=== PATIENT | female | born 1975 | race Caucasian/White ===

== ENCOUNTER → 2016-07-01 | Outpatient (CLI) | payer OTHER ==
[~2016-07-01] MED LIST: BCPILLS PO; CETI10TA84 PO; MELATAB2 PO; NAPR1TAB9 PO; TURM1CAP4 PO; ZOLOFT PO
== END | disposition home or self-care (01) ==
LOC: C.PAPS 09:16
PROVIDERS: ATTEND Obstetrics & Gynecology
DX: Z12.4 Encounter for screening for malignant neoplasm of cervix (principal)

== ENCOUNTER 2016-07-26 07:50 | Emergency (ER) | payer OTHER ==
[~2016-07-26] VITALS: Ht 172.7 cm; Wt 79.0 kg
[2016-07-26 07:52] VITALS: TEMP 36.8; Ht 172.7 cm; Wt 79.0 kg
[2016-07-26] MEDS ORDERED: BCPILLS PO (08:03)
[2016-07-26] MEDS ORDERED: NAPR1TAB9 PO (08:03)
[2016-07-26] MEDS ORDERED: TURM1CAP4 PO (08:03)
[2016-07-26] MEDS ORDERED: ZOLOFT PO (08:03)
[2016-07-26] MEDS ORDERED: MELATAB2 PO (08:03)
[2016-07-26] MEDS ORDERED: CETI10TA84 PO (08:03)
[2016-07-26 11:19] VITALS: BP 131/88; PULSE 96; O2SAT 100
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
== END 2016-07-26 11:20 | disposition home or self-care (01) ==
LOC: EDSEX 07:50 → EDBD 07:50 → C.EDA 07:52
DX: Z02.1 Encounter for pre-employment examination (principal); F41.9 Anxiety disorder, unspecified; F32.9 Major depressive disorder, single episode, unspecified

== ENCOUNTER → 2016-08-11 | Outpatient (CLI) | payer OTHER ==
[2016-08-11 12:45] LABS: BASO % 0.5 %; BASO ABS # 0.03 K/uL (0-0.2); COMPLETE YES; EOS % 2.4 %; HEMATOCRIT 39.7 % (37-47); IG% 0.2 %; LYMPH % 35.7 %; LYMPH ABS # 2.23 K/uL (1.2-3.4); MEAN CELL VOLUME 89.4 fL (80-100); MEAN CORPUSCULAR HEMOGLOBIN 30.4 pg (25-34); MONO % 8.2 %; PLATELET COUNT 228 K/uL (130-400); RED BLOOD COUNT 4.44 M/uL (4.2-5.4); WHITE BLOOD COUNT 6.24 K/uL (4.8-10.8)
[2016-08-11 13:10] LABS: BLOOD UREA NITROGEN 13 mg/dl (7-18); CREATININE 0.83 mg/dl (0.60-1.20); GLUCOSE 88 mg/dl (70-99)
[2016-08-11 13:11] LABS: ALT/SGPT 22 U/L (12-78); AST/SGOT 12 U/L (15-37); BUN/CREATININE RATIO 15.1 (10-20); CALCIUM 8.5 mg/dl (8.5-10.1); CARBON DIOXIDE 24 mmol/L (21-32); CHLORIDE 105 mmol/L (98-107); POTASSIUM 4.3 mmol/L (3.5-5.1); SODIUM 139 mmol/L (136-145)
[2016-08-11 13:21] LABS: ALB/GLOB RATIO 1.1 (0.9-2); ALKALINE PHOSPHATASE 47 U/L (45-117); CHOLESTEROL 209 mg/dl (0-200); CHOLESTEROL/HDL RATIO 2.8; HDL CHOLESTEROL 75 mg/dl; LDL CHOLESTEROL CALCULATED 103 mg/dl; TRIGLYCERIDES 155 mg/dl (0-150); VERY LOW DENSITY LIPOPROT CALC 31 mg/dl
[2016-08-11 13:58] LABS: LYME DISEASE AB IGG NEG (NEG); LYME DISEASE AB IGM NEG (NEG)
[2016-08-13 15:18] LABS: CYCLIC CITRULLINATED PEPT IGG <16 UNITS (<20)
== END | disposition home or self-care (01) ==
LOC: C.LABBFT 08:08
PROVIDERS: ATTEND Internal Medicine Geriatric Medicine
DX: Z00.00 Encounter for general adult medical examination without abnormal findings (principal); F33.2 Major depressive disorder, recurrent severe without psychotic features; M19.90 Unspecified osteoarthritis, unspecified site

== ENCOUNTER → 2017-01-23 | Outpatient (CLI) | payer OTHER ==
--- NOTE | 2017-01-23 15:04 | DIAGNOSTIC IMAGING REPORT ---
RIGHT FOOT MIN 3 VIEWS ROUTINE CLINICAL HISTORY: Right foot pain status post trauma COMPARISON: None. DISCUSSION: There are acute nondisplaced fractures of the third and fourth metatarsal necks. There are no dislocations. IMPRESSION: Acute nondisplaced fractures of the third and fourth metatarsal necks Electronically signed by: Shar Osorio M.D. 01/23/2017 3:03 PM Dictated Date/Time: 01/23/2017 3:02 PM
== END | disposition home or self-care (01) ==
LOC: C.RAD 14:40
PROVIDERS: ATTEND Physician Assistant Medical
DX: S92.334A Nondisplaced fracture of third metatarsal bone, right foot, initial encounter for closed fracture (principal); S92.344A Nondisplaced fracture of fourth metatarsal bone, right foot, initial encounter for closed fracture; X58.XXXA Exposure to other specified factors, initial encounter

== ENCOUNTER → 2017-02-08 | Outpatient (CLI) | payer OTHER ==
--- NOTE | 2017-02-08 15:20 | DIAGNOSTIC IMAGING REPORT ---
RIGHT FOOT MIN 3 VIEWS CLINICAL HISTORY: 41 years-old Female presenting with follow-up third and fourth metatarsal fractures. TECHNIQUE: Frontal, oblique, and lateral views of the right foot were obtained. COMPARISON: 01/23/2017. FINDINGS: Previous seen noted nondisplaced fractures of the third and fourth metatarsal necks are again noted, slightly decreased in conspicuity. No bridging callus formation is yet evident with persistent fracture planes. No new fracture or malalignment. Duplicated accessory navicular noted. Minimal osteophytosis at the head of the first metatarsal at the first metatarsophalangeal joint. Regional soft tissues normal. IMPRESSION: 1. Expected interval evolution of the nondisplaced fractures of the necks of the third and fourth metatarsals. Persistent fracture planes. Electronically signed by: Rajesh Schneider M.D. 02/08/2017 3:18 PM Dictated Date/Time: 02/08/2017 3:16 PM
== END | disposition home or self-care (01) ==
LOC: C.RDSM 12:12
PROVIDERS: ATTEND Family Medicine
DX: M79.671 Pain in right foot (principal)

== ENCOUNTER → 2017-02-23 | Outpatient (CLI) | payer OTHER ==
--- NOTE | 2017-02-23 13:45 | DIAGNOSTIC IMAGING REPORT ---
RIGHT FOOT MIN 3 VIEWS HISTORY: 41 years-old Female RIGHT 3RD AND 4TH METATARSAL FX Right Acute foot pain without reported trauma, most pronounced in the region of the third and fourth metatarsals. COMPARISON: Right foot radiographs 02/08/2017, 01/23/2017. TECHNIQUE: 3 views of the right foot. FINDINGS: There is progressive healing with bony callus surrounding the nondisplaced third and fourth metatarsal neck fractures. No additional acute fracture or dislocation identified. Type I accessory navicular is present. Mild first MTP joint degenerative changes. Focal asymmetric cortical thickening involving the proximal medial shaft of the fourth metatarsal may reflect stress response. IMPRESSION: 1. Progressive healing callus formation of the subacute nondisplaced fractures of the third and fourth metatarsal necks. 2. Focal asymmetric cortical thickening involving the proximal medial shaft of the fourth metatarsal may reflect stress response. The above report was generated using voice recognition software. It may contain grammatical, syntax or spelling errors. Electronically signed by: Rod Live M.D. 02/23/2017 1:44 PM Dictated Date/Time: 02/23/2017 1:40 PM
== END | disposition home or self-care (01) ==
LOC: C.RDSM 13:09
PROVIDERS: ATTEND Internal Medicine
DX: S92.309D Fracture of unspecified metatarsal bone(s), unspecified foot, subsequent encounter for fracture with routine healing (principal); X58.XXXD Exposure to other specified factors, subsequent encounter